=== PATIENT | female | born 1985 | race Caucasian/White ===

== ENCOUNTER 2016-10-20 19:58 | Emergency (ER) | payer MEDICAID ==
[~2016-10-20] VITALS: Ht 160 cm; Wt 72.1 kg
[2016-10-20 21:10] LABS: BASOPHIL % 0.3 % (0-2); RED CELL DISTRIBUTION WIDTH 13.1 % (11.5-14.5)
[2016-10-20 21:11] LABS: PLATELET COUNT 429 x10^3mcL (130-400)
[2016-10-20 22:13] VITALS: BP 132/78
== END 2016-10-20 22:13 | disposition home or self-care (01) ==
LOC: ED 19:58
PROVIDERS: Emergency Medicine
DX: O20.0 Threatened abortion (principal); Z3A.11 11 weeks gestation of pregnancy

== ENCOUNTER 2016-11-16 19:39 | Emergency (ER) | payer MEDICAID ==
[2016-11-16 22:18] VITALS: BP 120/72
== END 2016-11-16 22:18 | disposition left against medical advice (07) ==
LOC: ED 19:39
DX: Z53.21 Procedure and treatment not carried out due to patient leaving prior to being seen by health care provider (principal)

== ENCOUNTER 2016-12-26 02:32 | Emergency (ER) | payer MEDICAID ==
[~2016-12-26] VITALS: Ht 160 cm; Wt 75.1 kg
[2016-12-26 02:48] VITALS: BP 121/75
[2016-12-26 04:03] LABS: BASOPHIL % 0.3 % (0-2); PLATELET COUNT 364 x10^3mcL (130-400); RED CELL DISTRIBUTION WIDTH 13.2 % (11.5-14.5)
== END 2016-12-26 05:57 | disposition home or self-care (01) ==
LOC: ED 02:32
PROVIDERS: Emergency Medicine
DX: O20.0 Threatened abortion (principal); Z3A.19 19 weeks gestation of pregnancy; Z98.890 Other specified postprocedural states
CPT/HCPCS: 36415; Q0092